=== PATIENT | female | born 1945 | race Caucasian/White ===

== ENCOUNTER → 2018-02-04 07:01 | Outpatient (CLI) | payer MEDICARE, SELFPAY ==
[2018-02-04 08:20] LABS: Absolute Neutrophil Count 2.7 X10^3/uL (2.0-7.7); Basophil# 0.06 X10^3/uL; Basophil% 1.1 % (0-1); Eosinophil# 0.14 X10^3/uL; Eosinophils% 2.6 % (0-5); Hemoglobin 13.9 g/dl (12.0-15.0); Lymphocyte % 35.8 % (19-41); Mean Corp Hgb Conc 33.1 g/gl (32-36); Mean Corpuscular Hgb 28.9 pg (27.0-32.0); Mean Corpuscular Volume 87.3 fL (81-99); Mean Platelet Vol. 9.5 fl (6.2-12.0); Monocyte# 0.52 X10^3/uL; Monocyte% 9.8 % (0-10); Neutrophil # 2.68 X10^3/uL (2.7-7.7); Neutrophil % 50.5 % (47-70); Platelet Count 253 K/mm3 (150-450); RBC Distribution Width CV 14.9 % (11.6-14.6); RBC Distribution Width SD 47.6 fl (35.1-43.9); Red Blood Count 4.81 M/mm3 (4.2-5.4); White Blood Count 5.3 K/mm3 (4.4-11.0)
[2018-02-04 08:23] LABS: POSITIVE COUNT NO; POSITIVE DIFFERENTIAL NO; POSITIVE MORPHOLOGY NO
[2018-02-04 08:50] LABS: ALB/GLOB Ratio 1.2 RATIO (0.9-2.4); AST(SGOT) 22 U/L (15-37); Alanine Aminotransfer ALT/SGPT 31 U/L (13-56); Albumin, Serum 3.8 g/dL (3.2-5.0); Alkaline Phosphatase 58 U/L (45-117); Anion Gap 6 (5-15); BUN 15 mg/dL (7-18); Calcium,Total 8.6 mg/dL (8.5-10.1); Chloride 108 mmol/L (98-107); Cholesterol 183 mg/dL (200); Creatinine, Serum 0.65 mg/dL (0.55-1.02); EST Glomerular Filtration Rate 95 mL/min (>60); Est Glom Filt Rate - Afr Amer 115 mL/min (>60); Globulin 3.1 g/dL (2.2-4.2); Glucose 87 mg/dL (74-106); High Density Lipoprotein 79 mg/dL; Potassium 4.1 mmol/L (3.5-5.1); Protein, Total 6.9 g/dL (6.4-8.2); Sodium Level 143 mmol/L (136-145); Thyroid Stim Hormone (TSH) 1.86 uIU/mL (0.358-3.74); Triglycerides 48 mg/dL; Very Low Density Lipoprotein 10 mg/dL (5-40)
[2018-02-06 08:15] LABS: Hep C Antibodies <0.1 s/co ratio (0.0-0.9)
== END ==
PROVIDERS: Family Provider Family Medicine; PCP Family Medicine; Visit Provider Family Medicine
DX: Z13.29 Encounter for screening for other suspected endocrine disorder (principal); Z13.0 Encounter for screening for diseases of the blood and blood-forming organs and certain disorders involving the immune mechanism; Z13.220 Encounter for screening for lipoid disorders; Z11.59 Encounter for screening for other viral diseases; G47.00 Insomnia, unspecified; E04.1 Nontoxic single thyroid nodule
CPT/HCPCS: 80053; 80061; 84439; 84443; 85025; 86803

== ENCOUNTER → 2018-02-08 13:12 | Outpatient (CLI) | payer MEDICARE, SELFPAY ==
--- NOTE | 2018-02-08 13:14 | US_ITS ---
STUDY: THYROID ULTRASOUND REASON FOR EXAM: Female, 72 years old. Nodule. TECHNIQUE: Ultrasound evaluation of the thyroid was performed with real-time and static madden-scale imaging. COMPARISON: None. FINDINGS: RIGHT LOBE: The right lobe of the thyroid gland measures 5.7 x 1.5 x 1.7 cm. There is a homogeneous echotexture. There is a 7 mm poorly defined solid nodule. LEFT LOBE: The left lobe of the thyroid gland measures 4.9 x 1.5 x 1.7 cm. There is a homogeneous echotexture. There is a poorly defined 1.2 cm solid nodule. ISTHMUS: The isthmus measures 3 mm . The regional lymph nodes are normal. US/Thyroid IMPRESSION: Bilateral thyroid nodules as much as 1.2 cm. Annual follow-up would be adequate management. Electronically Signed: Cliff Payton MD at 9:24 EDT , Service support ,
== END ==
PROVIDERS: Family Provider Family Medicine; PCP Family Medicine; Visit Provider Family Medicine
DX: E04.1 Nontoxic single thyroid nodule (principal)
CPT/HCPCS: 76536

== ENCOUNTER → 2018-03-04 08:02 | Outpatient (CLI) | payer MEDICARE, SELFPAY ==
--- NOTE | 2018-03-04 07:30 | ASPS_PTH ---
PATIENT: JORGE GALVAN LOC: [facility] U#:[id number] AGE/SX: 80/F ROOM: RE03/04/[address]: Dr. Mingo Spence MD : 1945 BED: DIS: SPEC #: [id number] RECD: 03/06/18 07:16 STATUS: HIPOLITO ALTAGRACIA #: [id number] BRIAN: 03/04/18 07:[address]: Mingo Spence DEPT: CYTOLOGY RECD BY: Juan David Baptiste ENTERED: 03/06/18 09:50 SP TYPE: ASPIRATION OTHR DR: Dr. Louis Garcia MD Tissues: Thyroid gland, NOS Procedures: Pap Stain (control) Special Stain Group II Cytology Other HEADER OPERATION: Left thyroid FNA PRE-OP DIAGNOSIS: Left thyroid nodules TISSUE SUBMITTED: Left thyroid (10 slides) DIAGNOSIS CYTOLOGY Left thyroid nodule, FNA (smears): Consistent with benign follicular nodule. See cytology study and comment. SJ:tiny 03/07/18 COMMENT The findings may represent adenomatoid colloid nodule. Correlation with clinical, radiologic findings and appropriate follow up are necessary. CYTOLOGY STUDY Slides are reviewed. The specimen is adequate for evaluation. The specimen consists of benign follicular cells and colloid. CYTOLOGY GROSS Received are ten smears labeled with the patient's name and designated per the requisition as left thyroid. Submitted for staining. / 03/06/18 TC:5 CPT: 66255
== END ==
PROVIDERS: Family Provider Family Medicine; PCP Family Medicine; Visit Provider Surgery
DX: E04.1 Nontoxic single thyroid nodule (principal)
CPT/HCPCS: 88161; 88313

== ENCOUNTER → 2018-07-14 07:00 | Outpatient (CLI) | payer MEDICARE, SELFPAY | PROVIDERS: Family Provider Family Medicine; PCP Family Medicine; Visit Provider Family Medicine | DX: Z12.31 Encounter for screening mammogram for malignant neoplasm of breast (principal); N63.10 Unspecified lump in the right breast, unspecified quadrant | CPT/HCPCS: 77063; 77067 ==

== ENCOUNTER → 2018-07-21 08:44 | Outpatient (CLI) | payer MEDICARE, SELFPAY | PROVIDERS: Family Provider Family Medicine; PCP Family Medicine; Visit Provider Family Medicine | DX: R92.8 Other abnormal and inconclusive findings on diagnostic imaging of breast (principal) | CPT/HCPCS: 76642 ==

== ENCOUNTER → 2019-04-06 11:02 | Outpatient (CLI) | payer MEDICARE, SELFPAY ==
--- NOTE | 2019-04-06 11:20 | US_ITS ---
STUDY: THYROID ULTRASOUND REASON FOR EXAM: Female, 73 years old. Nodules TECHNIQUE: Ultrasound evaluation of the thyroid was performed with real-time and static madden-scale imaging. COMPARISON: Thyroid ultrasound February 08, 2018 FINDINGS: RIGHT LOBE: The right lobe of the thyroid gland measures 5.3 x 1.8 x 2 cm. There is a homogeneous echotexture. There is a right upper pole 4 x 6 x 3 mm upper pole nodule and 4 x 4 by 2 mm mid pole nodule, hypoechoic to isoechoic without associated calcifications. These are not significantly changed since the comparison evaluation. LEFT LOBE: The left lobe of the thyroid gland measures 4.1 x 1.5 x 1.8 cm. There is a homogeneous echotexture. There is an upper pole 1.1 x 1.2 x 0.5 cm nodule in the midpole 9 x 9 x 8 mm nodule, isoechoic to hyperechoic without associated calcification. These are not significantly changed since the comparison evaluation. ISTHMUS: The isthmus measures 3 mm . The regional lymph nodes are normal. US/Thyroid IMPRESSION: Bilateral thyroid nodules described above, not significantly changed. Electronically Signed: Jhonathan Arthur, at 14:55 EDT Tel , Service support ,
== END ==
PROVIDERS: Family Provider Family Medicine; PCP Family Medicine; Referring Provider Family Medicine; Visit Provider Family Medicine
DX: E04.2 Nontoxic multinodular goiter (principal)
CPT/HCPCS: 76536

== ENCOUNTER → 2023-08-24 | Outpatient (CLI) | payer MEDICARE, SELFPAY ==
[2023-08-24 18:12] LABS: Absolute Lymphocyte Count 2.25 X10^3/uL (0.83-4.51); Absolute Neutrophil Count 4.7 X10^3/uL (2.0-7.7); Basophil# 0.07 X10^3/uL; Basophil% 0.9 % (0-1); Eosinophil# 0.19 X10^3/uL; Eosinophils% 2.4 % (0-5); Hematocrit 50.1 % (37-47); Hemoglobin 16.3 g/dL (12.0-15.0); Lymphocyte # 2.25 X10^3/ul (0.83-4.51); Lymphocyte % 28.7 % (19-41); Mean Corp Hgb Conc 32.5 g/dL (32-36); Mean Corpuscular Hgb 31.6 pg (27.0-32.0); Mean Corpuscular Volume 97.1 fL (81-99); Mean Platelet Vol. 9.6 fl (6.2-12.0); Monocyte# 0.58 X10^3/uL; Monocyte% 7.4 % (0-10); NRBC Flagged by Analyzer 0 % (0-5); Neutrophil # 4.73 X10^3/uL (2.7-7.7); Neutrophil % 60.3 % (47-70); Platelet Count 245 K/mm3 (150-450); RBC Distribution Width CV 12.5 % (11.6-14.6); RBC Distribution Width SD 44.4 fl (35.1-43.9); Red Blood Count 5.16 M/mm3 (4.2-5.4); White Blood Count 7.8 K/mm3 (4.4-11.0)
[2023-08-24 18:26] LABS: Vitamin D,25 Hydroxy 62.6 ng/mL
[2023-08-24 18:33] LABS: ALB/GLOB Ratio 1.3 RATIO (0.9-2.4); AST(SGOT) 26 U/L (15-37); Alanine Aminotransfer ALT/SGPT 41 U/L (13-56); Albumin, Serum 4.1 g/dL (3.2-5.0); Alkaline Phosphatase 67 U/L (45-117); Anion Gap 5 (5-15); BUN 18 mg/dL (7-18); BUN/Creat Ratio 27.2 RATIO (10-20); Calcium,Total 9.6 mg/dL (8.5-10.1); Chloride 103 mmol/L (98-107); Cholesterol 167 mg/dL (200); Creatinine, Serum 0.66 mg/dL (0.55-1.02); EST Glomerular Filtration Rate 92 mL/min (>60); Est Glom Filt Rate - Afr Amer 112 mL/min (>60); Globulin 3.1 g/dL (2.2-4.2); Glucose 99 mg/dL (74-106); High Density Lipoprotein 68 mg/dL; Protein, Total 7.2 g/dL (6.4-8.2); Sodium Level 136 mmol/L (136-145); Thyroid Stim Hormone (TSH) 2.35 uIU/mL (0.358-3.74); Triglycerides 56 mg/dL; Very Low Density Lipoprotein 11 mg/dL (5-40)
== END | disposition home or self-care (01) ==
LOC: MFPLAB 15:06
PROVIDERS: PCP Family Medicine; Visit Provider Family Medicine
DX: Z00.00 Encounter for general adult medical examination without abnormal findings (principal); Z13.6 Encounter for screening for cardiovascular disorders; E55.9 Vitamin D deficiency, unspecified; E04.2 Nontoxic multinodular goiter
CPT/HCPCS: 36415; 80053; 80061; 82306; 84443; 85025

== ENCOUNTER → 2023-10-14 | Outpatient (CLI) | payer BC, SELFPAY ==
--- NOTE | 2023-10-14 15:29 | US_ITS ---
STUDY: THYROID ULTRASOUND REASON FOR EXAM: Female, 78 years old. Known nodules TECHNIQUE: Ultrasound evaluation of the thyroid was performed with real-time and static madden-scale imaging. COMPARISON: 2018 FINDINGS: RIGHT LOBE: The right lobe of the thyroid gland measures 5.7 x 1.6 x 1.8 cm. There is a homogeneous echotexture. There is a stable solid well-defined hypoechoic 0.4 x 0.6 x 0.3 cm nodule in the upper pole, and a stable solid/cystic 0.7 x 0.4 x 0.4 cm nodule in the lower pole. Since both are unchanged dating back to 2018, no specific follow-up is needed. TI-RADS category 2 LEFT LOBE: The left lobe of the thyroid gland measures 3.6 x 1.6 x 1.8 cm. There is a homogeneous echotexture. There is a stable 1.2 cm well-defined hypoechoic upper pole nodule, and a stable well-defined hypoechoic 1.3 cm lower pole nodule. Since both are also unchanged dating back to 2019, no specific follow-up is needed, TI RADS category 2 ISTHMUS: The isthmus measures 0.31 cm. The regional lymph nodes are normal. US/Thyroid IMPRESSION: Homogeneous thyroid gland with stable enlargement of the right lobe and stable bilateral nodules unchanged dating back to 2019. Categorization and follow-up as described above Electronically Signed: John Phelps MD at 8:13 EST ,
== END | disposition home or self-care (01) ==
LOC: US 15:27
PROVIDERS: PCP Family Medicine; Referring Provider Family Medicine; Visit Provider Family Medicine
DX: E04.2 Nontoxic multinodular goiter (principal)
CPT/HCPCS: 76536

== ENCOUNTER → 2024-10-09 | Outpatient (CLI) | payer MEDICARE, SELFPAY ==
[2024-10-09 17:55] LABS: Vitamin D,25 Hydroxy 54.2 ng/mL
== END | disposition home or self-care (01) ==
PROVIDERS: PCP Family Medicine; Visit Provider Nurse Practitioner Family
DX: E55.9 Vitamin D deficiency, unspecified (principal)
CPT/HCPCS: 36415; 82306

== ENCOUNTER → 2024-12-26 | Outpatient (CLI) | payer MEDICARE, SELFPAY ==
--- NOTE | 2024-12-26 12:55 | BI_ITS ---
PROCEDURE: SCREENING MAMM (CAD), BILAT REASON FOR EXAM: F, Age 79 y/o, routine annual mammogram. TECHNIQUE: Bilateral screening digital breast tomosynthesis with 2D and 3D images. Computer aided detection. COMPARISON: Prior exam(s) dating back to July 14, 2018.. FINDINGS: The breasts are heterogeneously dense which may obscure small masses. The previously seen nodular density in the retroareolar region of the right breast has decreased in size and almost completely resolved. No suspicious masses, areas of developing architectural distortion, or suspicious calcifications. BI/SCREENING MAMM (CAD), BILAT IMPRESSION: BI-RADS 1: NEGATIVE. RECOMMEND ANNUAL MAMMOGRAPHIC SCREENING. Follow-up code: Routine Follow-up The patient will be notified of the results by letter. Reading Location: [place] [id number]
--- NOTE | 2024-12-26 12:59 | BD_ITS ---
PROCEDURE: DEXA BONE DENSITY STUDY REASON FOR EXAM: 79-year-old female. Osteoporosis screening. TECHNIQUE: DEXA scan of the lumbar spine and left hip. COMPARISON: 10/24/2014 FINDINGS: Lumbar spine: T-score -3.3. (Current bone mineral density 0.733 g per cm2.); Previously: Prior T-score -2.8. 7.4% decreased bone mineral density from the previous study. Left hip: T-score -3.5. (Current bone mineral density 0.466 g per cm2 of the left femoral neck.); Previously: Prior T-score -2.3. 5.4% decreased bone mineral density from the previous study FRAX* Results: 10 Year Probability of Fracture: Hip Fracture(1): 42% Major Osteoporotic Fracture(2): 52% *FRAX is a trademark of the [employer]'s [employer] Metabolic Bone Disease, World Health Organization (WHO) Collaborating [place]. 1-The 10-year probability of fracture may be lower than reported if the patient has received treatment. 2-Major Osteoporotic Fracture: Clinical Spine, Forearm, Hip or Shoulder. The T-scores are also available for review on the [facility] PACS or by accessing the [facility] electronic medical record. BD/Dexa Bone Density Study IMPRESSION: Osteoporosis. Reading Location: [place]
== END | disposition home or self-care (01) ==
LOC: OPBD 12:54
PROVIDERS: PCP Family Medicine; Referring Provider Nurse Practitioner Family; Visit Provider Nurse Practitioner Family
DX: Z12.31 Encounter for screening mammogram for malignant neoplasm of breast (principal); M81.0 Age-related osteoporosis without current pathological fracture; Z13.820 Encounter for screening for osteoporosis
CPT/HCPCS: 77067; 77080

== ENCOUNTER → 2025-01-18 | Outpatient (CLI) | payer MEDICARE, SELFPAY ==
[2025-01-18 16:05] LABS: AST(SGOT) 25 U/L (<=31); Alanine Aminotransfer ALT/SGPT 22 U/L (<=34); Albumin, Serum 4.3 g/dL (3.4-4.8); Alkaline Phosphatase 67 U/L (35-104); Anion Gap 13 (5-15); BUN 22 mg/dL (4-19); BUN/Creat Ratio 33.7 RATIO (10-20); Calcium 9.2 mg/dL (7.6-11.0); Carbon Dioxide 22.7 mmol/L (22.0-29.0); Chloride 104 mmol/L (96-108); Creatinine, Serum 0.64 mg/dL (0.70-1.20); EST Glomerular Filtration Rate 91 (>60); Globulin 2.2 g/dL (2.2-4.2); Glucose 85 mg/dL (70-99); Potassium 3.7 mmol/L (3.3-5.1); Protein, Total 6.4 g/dL (5.9-8.4); Sodium Level 139 mmol/L (133-145); Total Bilirubin 0.47 mg/dL (0.00-1.30)
== END | disposition home or self-care (01) ==
LOC: MFPLAB 12:11
PROVIDERS: PCP Family Medicine; Referring Provider Family Medicine; Visit Provider Family Medicine
DX: E55.9 Vitamin D deficiency, unspecified (principal)
CPT/HCPCS: 36415; 80053; 82306